=== PATIENT | female | born 1985 | race Caucasian/White ===

== ENCOUNTER 2018-06-06 23:40 | Outpatient (CLI) | payer OTHER ==
[~2018-06-06] VITALS: Ht 162.6 cm; Wt 60.0 kg
[~2018-06-06 23:40] MED LIST: PREN1TAB60 PO
[2018-06-07 00:34] LABS: MICROSCOPIC INDICATED
[2018-06-07] MEDS ORDERED: OXYcodone/APAP 5/325MG TABLET ONE (01:58)
[2018-06-07] MEDS ORDERED: OXYcodone/APAP 5/325MG TABLET PO ONE (02:00)
== END 2018-06-07 02:10 | disposition home or self-care (01) ==
LOC: LDOP 23:40
PROVIDERS: ATTEND Obstetrics & Gynecology
DX: O62.9 Abnormality of forces of labor, unspecified (principal); Z3A.36 36 weeks gestation of pregnancy
CPT/HCPCS: 59025; 81001; 87086; 99201; 99211; G0463

== ENCOUNTER 2018-06-09 02:16 | Inpatient (IN) | payer OTHER ==
[~2018-06-09] VITALS: Ht 167.6 cm; Wt 60.5 kg
[2018-06-09] MEDS ORDERED: NEWBORN KIT ONE (02:57)
[2018-06-09] MEDS ORDERED: LIDOCAINE/PF 1%, 30ML ONE (02:57)
[2018-06-09] MEDS ORDERED: MISOPROSTOL 200 MCG TABLET ONE (02:58)
[2018-06-09] MEDS ORDERED: OXYTOCIN 30U/ 0.9% NaCL 500ML 500 ML ONE ×2 (02:58→10:05)
[2018-06-09] MEDS ORDERED: D5%-LACTATED RINGERS 1,000 ML IV SCH (03:02)
[2018-06-09] MEDS ORDERED: OXYTOCIN 30U/ 0.9% NaCL 500ML 500 ML IV ONE (03:02)
[2018-06-09] MEDS: LACTATED RINGERS 1,000 ML IV SCH ×2 (03:02→10:00)
[2018-06-09] MEDS ORDERED: PLEASE ENTER HEIGHT AND WEIGHT MC SCH (03:30)
[2018-06-09] MEDS ORDERED: SODIUM CITRATE/CITRIC ACID 30 ML UDC PO PRN (03:30)
[2018-06-09] MEDS ORDERED: FENTANYL PF 100 MCG/2ML IV PRN (03:30)
[2018-06-09] MEDS ORDERED: ALUMINUM/MAG/SIMETHICONE 30 ML UDC PO PRN (03:30)
[2018-06-09] MEDS ORDERED: METOCLOPRAMIDE 5 MG/ML, 2ML IVPush PRN (03:30)
[2018-06-09] MEDS ORDERED: ONDANSETRON 2MG/ML, 2ML IVPush PRN (03:30)
[2018-06-09] MEDS ORDERED: TERBUTALINE 1 MG/ML, 1ML IVPush PRN ×2 (03:30)
[2018-06-09] MEDS ORDERED: CALCIUM CARBONATE 500 MG TAB.CHEW PO PRN (03:30)
[2018-06-09] MEDS ORDERED: TERBUTALINE 1 MG/ML, 1ML SQ PRN (03:30)
[2018-06-09 03:46] LABS: BASOPHILS # (AUTO) 0.04 x10^3/uL (0-0.1); BASOPHILS % (AUTO) 0 % (0-1); EOSINOPHILS # (AUTO) 0.03 x10^3/uL (0-0.4); EOSINOPHILS % (AUTO) 0 % (1-7); LYMPHOCYTES # (AUTO) 1.53 x10^3/uL (1-3.4); LYMPHOCYTES % (AUTO) 13 % (22-44); MD NO; MEAN CORPUSCULAR HEMOGLOBIN 32.4 pg (27.0-34.8); MEAN CORPUSCULAR VOLUME 95.4 fL (80-100); MEAN PLATELET VOLUME 11.3 fL (7.4-10.4); MONOCYTES # (AUTO) 0.43 x10^3/uL (0.2-0.8); MONOCYTES % (AUTO) 4 % (2-9); NEUTROPHILS # (AUTO) 9.88 x10^3/uL (1.8-6.8); NEUTROPHILS % (AUTO) 83 % (42-75); PLATELET COUNT 180 x10^3/uL (130-400); RED BLOOD COUNT 4.42 x10^6/uL (3.82-5.3); RED CELL DISTRIBUTION WIDTH 13.9 % (9.6-15.2)
[2018-06-09] MEDS ORDERED: FENTANYL PF 100 MCG/2ML ONE ×3 (03:58→09:51)
[2018-06-09] MEDS: FENTANYL PF 100 MCG/2ML IVPush PRN ×2 (04:02→06:08)
[2018-06-09] MEDS: OXYTOCIN 30U/ 0.9% NaCL 500ML 500 ML IV SCH ×2 (10:10→20:45)
[2018-06-09] MEDS ORDERED: OXYcodone IR 5MG TABLET PO PRN (10:30)
[2018-06-09] MEDS ORDERED: ACETAMINOPHEN 325 MG TABLET PO PRN (10:30)
[2018-06-09] MEDS ORDERED: ONDANSETRON 2MG/ML, 2ML IV PRN (10:30)
[2018-06-09] MEDS ORDERED: MEASLES,MUMPS&RUBELLA VACC/PF 0.5 ML SQ-VACC PRN (10:30)
[2018-06-09] MEDS ORDERED: METHYLERGONOVINE 0.2 MG/ML IM PRN (10:30)
[2018-06-09] MEDS ORDERED: MISOPROSTOL 200 MCG TABLET PR PRN ×2 (10:30)
[2018-06-09 12:00] VITALS: BP 127/86
[2018-06-09] MEDS: DOCUSATE 100 MG CAPSULE PO PRN (13:20)
[2018-06-09] MEDS: IBUPROFEN 600 MG TABLET PO PRN (13:20)
[2018-06-09 17:00] VITALS: BP 119/79
[2018-06-09 17:50] LABS: BASOPHILS # (AUTO) 0.04 x10^3/uL (0-0.1); BASOPHILS % (AUTO) 0 % (0-1); EOSINOPHILS # (AUTO) 0.02 x10^3/uL (0-0.4); EOSINOPHILS % (AUTO) 0 % (1-7); LYMPHOCYTES # (AUTO) 1.16 x10^3/uL (1-3.4); LYMPHOCYTES % (AUTO) 10 % (22-44); MD NO; MEAN CORPUSCULAR HEMOGLOBIN 32.5 pg (27.0-34.8); MEAN CORPUSCULAR HGB CONC 33.7 g/dL (32.4-35.8); MEAN CORPUSCULAR VOLUME 96.3 fL (80-100); MEAN PLATELET VOLUME 11.1 fL (7.4-10.4); MONOCYTES # (AUTO) 0.59 x10^3/uL (0.2-0.8); MONOCYTES % (AUTO) 5 % (2-9); NEUTROPHILS # (AUTO) 9.51 x10^3/uL (1.8-6.8); NEUTROPHILS % (AUTO) 84 % (42-75); PLATELET COUNT 166 x10^3/uL (130-400); RED BLOOD COUNT 4.02 x10^6/uL (3.82-5.3); RED CELL DISTRIBUTION WIDTH 13.3 % (9.6-15.2)
[2018-06-09 19:15] VITALS: BP 126/77
[2018-06-09] MEDS ORDERED: DIPH,PERTUSS(ACELL),TET VAC/PF NC IM-VACC ONE (21:00)
[2018-06-09 23:45] VITALS: BP 115/71
[2018-06-10 05:30] VITALS: BP 116/73
[2018-06-10] MEDS: OXYTOCIN 30U/ 0.9% NaCL 500ML 500 ML IV SCH ×2 (05:30→16:04)
[2018-06-10] MEDS: DOCUSATE 100 MG CAPSULE PO PRN (07:54)
[2018-06-10] MEDS: IBUPROFEN 600 MG TABLET PO PRN (07:54)
[2018-06-10 08:00] VITALS: BP 122/82
[2018-06-10] MEDS: PRENATAL VIT/IRON/FA 1 EACH TABLET PO SCH (09:00)
[2018-06-10] MEDS ORDERED: DIPH,PERTUSS(ACELL),TET VAC/PF NC IM-VACC ONE (17:35)
[2018-06-10 19:40] VITALS: BP 134/90
[2018-06-11] MEDS: OXYTOCIN 30U/ 0.9% NaCL 500ML 500 ML IV SCH ×2 (02:04→12:04)
[2018-06-11 08:35] VITALS: BP 117/73
[2018-06-11] MEDS: DOCUSATE 100 MG CAPSULE PO PRN (08:43)
[2018-06-11] MEDS: PRENATAL VIT/IRON/FA 1 EACH TABLET PO SCH (08:43)
[2018-06-11] MEDS ORDERED: IBUP-1222 PO (09:03)
== END 2018-06-11 13:15 | disposition home or self-care (01) | DRG 807 ==
LOC: LDOP 02:16 → LDIP 02:57 → 2NW 11:55
PROVIDERS: ADMIT Obstetrics & Gynecology; ATTEND Obstetrics & Gynecology
PROC: 10E0XZZ Delivery of Products of Conception, External Approach (ICD-10-PCS; principal; 2018-06-09)
PROC: 0HQ9XZZ Repair Perineum Skin, External Approach (ICD-10-PCS; 2018-06-09)
PROC: 10907ZC Drainage of Amniotic Fluid, Therapeutic from Products of Conception, Via Natural or Artificial Opening (ICD-10-PCS; 2018-06-09)
PROC: 3E02340 Introduction of Influenza Vaccine into Muscle, Percutaneous Approach (ICD-10-PCS; 2018-06-09)
DX: O77.0 Labor and delivery complicated by meconium in amniotic fluid (principal); Z37.0 Single live birth; O70.0 First degree perineal laceration during delivery; Z3A.36 36 weeks gestation of pregnancy; Z23 Encounter for immunization
CPT/HCPCS: 36415; 85025; 86850; 86900; 90656; 90715; G0378; J3010; J2590; J7120